=== PATIENT | female | born 1945 | race Caucasian/White ===

== ENCOUNTER → 2016-09-01 | Outpatient (CLI) | payer OTHER | LOC: FIMAGING 09:33 | DX: Z12.31 Encounter for screening mammogram for malignant neoplasm of breast (principal) | CPT/HCPCS: G0202 ==

== ENCOUNTER → 2017-06-23 | Outpatient (CLI) | payer OTHER | LOC: FIMAGING 13:08 | PROVIDERS: ATTEND Internal Medicine | DX: Z13.83 Encounter for screening for respiratory disorder NEC (principal); J84.9 Interstitial pulmonary disease, unspecified ==

== ENCOUNTER → 2018-01-30 | Outpatient (CLI) | payer OTHER | LOC: BMCIMAGING 11:15 | PROVIDERS: ATTEND Internal Medicine | DX: S80.12XA Contusion of left lower leg, initial encounter (principal) ==

== ENCOUNTER → 2018-02-01 | Outpatient (CLI) | payer OTHER | LOC: CIMAGING 14:07 | PROVIDERS: ATTEND Internal Medicine | DX: Z03.89 Encounter for observation for other suspected diseases and conditions ruled out (principal) | CPT/HCPCS: 70486-PO ==